=== PATIENT | female | born 1990 | race Caucasian/White ===

== ENCOUNTER 2018-04-21 17:02 | Emergency (ER) | payer OTHER ==
[2018-04-21 17:25] VITALS: O2SAT 98
--- NOTE | 2018-04-21 19:19 | C.PDOC ---
History Of Present Illness 28 year old female presents to the ER with a complaint of throat discomfort since yesterday after eating fish. Patient believes she got one of the fishbones stuck in her throat, she tried eating and drinking to try to dislodge it with no relief. Denies pain, nausea, or vomiting. Time Seen by Provider: 04/21/18 17:42 Chief Complaint (Nursing): Foreign Body History Per: Patient History/Exam Limitations: None Onset/Duration Of Symptoms: Days Current Symptoms Are (Timing): Still Present Quality (Mouth/Throat): Other (Foreign body sensation) Symptoms Have Been: Continuous Anticoagulant/Antiplatlet Use?: No Past Medical History Reviewed: Historical Data, Nursing Documentation, Vital Signs Vital Signs: Last Vital Signs Temp 97.9 F 04/21/18 19:31 Pulse 74 04/21/18 19:31 Resp 16 04/21/18 19:31 BP 114/64 04/21/18 19:31 Pulse Ox 98 04/21/18 19:36 Family History: States: Unknown Family Hx - Social History Hx Alcohol Use: No Hx Substance Use: No - Immunization History Hx Tetanus Toxoid Vaccination: No Hx Influenza Vaccination: No Hx Pneumococcal Vaccination: No Review Of Systems ENT: Positive for: Other (Foreign body in throat) Respiratory: Negative for: Cough, Shortness of Breath Gastrointestinal: Negative for: Nausea, Vomiting Physical Exam - Physical Exam Appears: Non-toxic Skin: Normal Color, Warm, Dry Head: Atraumatic, Normacephalic Eye(s): bilateral: Normal Inspection Nose: Normal Oral Mucosa: Moist Throat: Normal, No Erythema, No Exudate, No Other (Foreign body) Neck: Normal, Supple Lymphatic: Adenopathy (Scant anterior cervical) Chest: Symmetrical, No Tenderness Cardiovascular: Rhythm Regular Respiratory: Normal Breath Sounds, No Accessory Muscle Use, No Stridor Neurological/Psych: Oriented x3, Normal Speech ED Course And Treatment O2 Sat by Pulse Oximetry: 98 (Room air) Pulse Ox Interpretation: Normal - Other Rad Neck soft tissue x-ray X-Ray: Interpreted by Me, Viewed By Me Interpretation: No acute abnormalities - CT Scan/US Neck soft tissue CT Other Rad Studies (CT/US): Read By Radiologist, Radiology Report Reviewed CT/US Interpretation: EXAM: CT Neck Without Intravenous Contrast. CLINICAL HISTORY: 28 years old, female; Signs and symptoms; Other: R/O fb; Additional info: ? Fish bone foreign body. TECHNIQUE: Axial computed tomography images of the neck without intravenous contrast. All CT scans at this. facility use at least one of these dose optimization techniques: automated exposure control; mA. and/or kV adjustment per patient size (includes targeted exams where dose is matched to clinical. indication); or iterative reconstruction. Coronal and sagittal reformatted images were created and reviewed. COMPARISON: No relevant prior studies available. FINDINGS: Oropharynx: Unremarkable. No significant tonsillar enlargement. No foreign body. Hypopharynx: Unremarkable. No foreign body. Larynx: Unremarkable. Normal epiglottis. No foreign body. Trachea: Unremarkable. Retropharyngeal space: Unremarkable. Submandibular/ parotid glands: The parotid and submandibular salivary glands are normal. Thyroid: The visualized thyroid and the thoracic inlet appear normal. Bones/ joints: No acute fracture. Soft tissues: No foreign body. Vasculature: No acute findings. Lymph nodes: There is mild to moderate submandibular lymphadenopathy is seen right more than. left. There are multiple enlarged nonspecific cervical nodes. Esophagus: The visualized esophagus shows no foreign body or disruption of the wall. Lung apices: The visualized portions of the lung apices are normal. Mediastinum: No inflammation is seen in the superior mediastinal soft tissue no extraluminal air. pockets. IMPRESSION: No foreign body structure reminiscent of fishbone is seen in the visualized aerodigestive tract. Incidental nonspecific cervical and submandibular nodes are noted, correlate with potential history of. URI. Medical Decision Making Medical Decision Making: Neck soft tissue x-ray and CT ordered, results were negative. Patient is resting comfortably in the ER in no acute distress, airways are patent and patient is tolerating PO well. vitals are stable, will discharge home with instructions to follow up with PMD, Disposition - Disposition Referrals: Perry Love MD [Staff Provider] - Disposition: HOME/ ROUTINE Disposition Time: 19:19 Condition: GOOD Additional Instructions: Follow up with the medical doctor within 1-2 days. Return if worsened. Prescriptions: Amoxicillin/Clavulanate [Augmentin 500 MG-125 MG] 1 tab PO BID #13 tab Instructions: Sore Throat, Adult (DC) Forms: [employer] ([place]i) - Clinical Impression Clinical Impression: Lymphadenopathy, Sensation of foreign body - PA / AUDITOR TAX / Resident Statement MD/DO has reviewed & agrees with the documentation as recorded. - Scribe Statement The provider has reviewed the documentation as recorded by the Scribe Abhishek Weathers All medical record entries made by the Tiaibe were at my direction and personally dictated by me. I have reviewed the chart and agree that the record accurately reflects my personal performance of the history, physical exam, medical decision making, and the department course for this patient. I have also personally directed, reviewed, and agree with the discharge instructions and disposition.
[2018-04-21 19:32] VITALS: BP 114/64; PULSE 74; RESP 16; TEMP 97.9
--- NOTE | 2018-04-22 08:25 | RAD ---
Date of service: 04/21/2018 HISTORY: Evaluate for foreign body COMPARISON: None FINDINGS: No radiopaque foreign body. No airway compromise. Osseous and soft tissue structures appear normal. IMPRESSION: No radiopaque foreign body appreciated
--- NOTE | 2018-04-22 09:13 | CT ---
Date of service: 04/21/2018 PROCEDURE: CT NECK WITHOUT CONTRAST HISTORY: ? fish bone foreign body COMPARISON: None available. TECHNIQUE: CT of the neck without intravenous contrast. Coronal and sagittal reformats generated. Radiation dose: DLP 233.72 mGy-cm This CT exam was performed using one or more of the following dose reduction techniques: Automated exposure control, adjustment of the mA and/or kV according to patient size, and/or use of iterative reconstruction technique. FINDINGS: NASOPHARYNX: Unremarkable. SUPRAHYOID NECK: Unremarkable oropharynx, oral cavity, parapharyngeal space and retropharyngeal space. INFRAHYOID NECK: Unremarkable larynx, hypopharynx, and supraglottic space. Vocal cords intact. MASS: None. GLANDS: Parotid and submandibular glands unremarkable. Normal size thyroid gland, without nodule. LYMPH NODES: Small, subcentimeter lymph nodes bilaterally likely infectious/inflammatory. CERVICAL SPINE: No fracture or focal lesion. OTHER FINDINGS: None. IMPRESSION: Unremarkable non-contrast enhanced CT of the neck.No visulaized radiopaque/visualized foreign body. Concordant results (preliminary interpretation) provided by [facility]. Procedure Completed: 18:34 Preliminary ([facility]) Report: Dictated and Authenticated: 19:05. Final Interpretation: 09:11. April 22 2018.
== END 2018-04-21 19:31 | disposition home or self-care (01) ==
LOC: C.ER 17:02
DX: R09.89 Other specified symptoms and signs involving the circulatory and respiratory systems (principal); R59.1 Generalized enlarged lymph nodes